=== PATIENT | female | born 1980 | race Caucasian/White ===

== ENCOUNTER 2017-08-23 17:36 | Emergency (ER) | payer BC ==
--- NOTE | 2017-08-23 18:56 | EDM.PDOC ---
ED HPI GENERAL MEDICAL PROBLEM - General Chief Complaint: General Stated Complaint: SOB Time Seen by Provider: 08/23/17 18:35 Source of Information: Reports: Patient History Limitations: Reports: No Limitations - History of Present Illness INITIAL COMMENTS - FREE TEXT/NARRATIVE: c/o rhinorrhea x 2d, myalgias, cough pt with 5d of V, diarrhea, fever to 101 , chills, and body aches 2w ago. Went to clinic and given N pill, took for 3d and was able to eat. now x 2d with URI, [place], ST, cough, ear pressure. Saw manager of community relations 2y ago and given Flonase, HFA x 2, however not used those in 1y. Apparently no definite dx. Pt denies asthma and hayfever. Did see Dr Suarez, manager infrastructure and asthma physician, as well. has 2 children, one with ST and cough. Husbnad not ill. 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 Went to walk-in clinic, had mask on and breathed in 20x and felt sob and panicky and sent here. VSS here. 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 OB/BYN History: - Infectious Disease History Infectious Disease History: Reports: Chicken Pox, Shingles - Past Surgical History Head Surgeries/Procedures: Reports: None HEENT Surgical History: Reports: Oral Surgery GI Surgical History: Reports: Appendectomy Female Surgical History: Reports: Hysterectomy, Salpingo-Oophorectomy Social & Family History - Family History Family Medical History: Noncontributory - Tobacco Use Smoking Status *Q: Former Smoker Used Tobacco, but Quit: Yes Month/Year Tobacco Last Used: may - Caffeine Use Caffeine Use: Reports: Soda - Alcohol Use Days Per Week of Alcohol Use: 0 - Recreational Drug Use Recreational Drug Use: No - Living Situation & Occupation Living situation: Reports: Occupation: Employed ED ROS GENERAL - Review of Systems Review Of Systems: See Below Constitutional: Reports: Fever HEENT: Reports: Rhinitis Respiratory: Reports: Cough. Denies: Sputum Cardiovascular: Reports: No Symptoms Endocrine: Reports: No Symptoms GI/Abdominal: Reports: No Symptoms : Reports: No Symptoms Musculoskeletal: Reports: No Symptoms Skin: Reports: No Symptoms Neurological: Reports: No Symptoms Psychiatric: Reports: No Symptoms Hematologic/Lymphatic: Reports: No Symptoms Immunologic: Reports: No Symptoms ED EXAM, GENERAL - Physical Exam Exam: See Below Exam Limited By: No Limitations General Appearance: Alert, WD/WN, No Apparent Distress Eye Exam: Bilateral Eye: Normal Inspection Ears: Normal External Exam, Normal Canal, Hearing Grossly Normal, Normal TMs Nose: No Blood, Other (30% swell b/l, clear mucus) Throat/Mouth: Normal Inspection, Normal Lips, Normal Teeth, Normal Gums, Normal Oropharynx, Normal Voice, No Airway Compromise Head: Atraumatic, Normocephalic Neck: Normal Inspection, Supple, Non-Tender, Full Range of Motion Respiratory/Chest: No Respiratory Distress, Lungs Clear, Normal Breath Sounds, No Accessory Muscle Use, Chest Non-Tender Cardiovascular: Regular Rate, Rhythm, No Edema, No JVD, No Murmur GI/Abdominal: Soft, Non-Tender, No Distention Back Exam: Normal Inspection Extremities: Normal Inspection, Normal Range of Motion, Non-Tender, No Pedal Edema Neurological: Alert, Oriented, CN II-XII Intact, Normal Cognition, No Motor/ Sensory Deficits Psychiatric: Normal Affect, Normal Mood Skin Exam: Warm, Dry, Intact, Normal Color, No Rash Course - Vital Signs Last Recorded V/S: Last Vital Signs Temp 37.2 C 08/23/17 19:19 Pulse 88 08/23/17 17:36 Resp 12 08/23/17 19:19 BP 108/69 08/23/17 19:19 Pulse Ox 98 08/23/17 19:19 - Orders/Labs/Meds Orders: Active Orders 24 hr Category Date Time Status Chest 2V [CR] Stat Exams 08/23/17 18:20 Ordered CULTURE STREP A CONFIRMATION [RM] Stat Lab 08/23/17 18:00 Results INFLUENZA A+B AG SCREEN [] Stat Lab 08/23/17 18:24 Ordered STREP SCRN A RAPID W CULT CONF [] Stat Lab 08/23/17 18:24 Ordered Labs: Laboratory Tests 08/23/17 08/23/17 08/23/17 Range/Units 19:01 19:01 19:01 WBC 4.3 L (4.5-12.0) X10-3/uL RBC 5.15 (3.23-5.20) x10(6)uL Hgb 15.1 (11.5-15.5) g/dL Hct 44.8 (30.0-51.3) % MCV 86.9 (80-96) fL MCH 29.2 (27.7-33.6) pg MCHC 33.6 (32.2-35.4) g/dL RDW 12.2 (11.5-15.5) % Plt Count 213 (125-369) X10(3)uL MPV 7.8 (7.4-10.4) fL Neut % (Auto) 55.3 (46-82) % Lymph % (Auto) 28.9 (13-37) % [place] % (Auto) 14.3 H (4-12) % Eos % (Auto) 1 (1.0-5.0) % Baso % (Auto) 1 (0-2) % Neut # (Auto) 2.4 (1.6-8.3) # Lymph # (Auto) 1.3 (0.6-5.0) # [place] # (Auto) 0.6 (0.0-1.3) # Eos # (Auto) 0.0 (0.0-0.8) # Baso # (Auto) 0.0 (0.0-0.2) # Sodium 140 (135-145) mmol/L Potassium 3.3 L (3.5-5.3) mmol/L Chloride 102 (100-110) mmol/L Carbon Dioxide 32 (21-32) mmol/L BUN 7 (7-18) mg/dL Creatinine 0.8 (0.55-1.02) mg/dL Est Cr Clr Drug Dosing 81.53 mL/min Estimated GFR (MDRD) > 60 (>60) BUN/Creatinine Ratio 8.8 L (9-20) Glucose 95 (80-116) mg/dL Calcium 9.1 (8.6-10.2) mg/dL Total Bilirubin 0.4 (0.1-1.3) mg/dL AST 19 (5-25) IU/L ALT 35 (12-36) U/L Alkaline Phosphatase 93 (56-112) IU/L C-Reactive Protein 0.4 L (0.5-0.9) mg/dL Total Protein 7.6 (6.0-8.0) g/dL Albumin 3.9 (3.5-5.2) g/dL Globulin 3.7 g/dL Albumin/Globulin Ratio 1.1 - Re-Assessments/Exams Free Text/Narrative Re-Assessment/Exam: 08/23/17 19:35 CxR and labs are neg except for K 3.3 and inc'd monos flu neg, strep neg Departure - Departure Time of Disposition: 19:35 Disposition: Home, Self-Care 01 Condition: Good Clinical Impression: Viral syndrome, Flu-like symptoms - Discharge Information Prescriptions: Potassium Chloride 20 meq PO BID #6 tablet.er Instructions: Viral Illness, Adult Referrals: Jared Sal MD [Primary Care Provider] - Forms: ED Department Discharge Additional Instructions: For pain and inflammation, take acetaminophen 500 mg 2 tabs 4 times a day for 2 days, longer if needed. To replace potassium, take potassium 20 meq 1 tab 2 times a day for 3 days. Use good handwashing. Get good adequate rest. See your doctor if you feel worse or are not better in 5 days. - My Orders Last 24 Hours: My Active Orders 08/23/17 18:00 CULTURE STREP A CONFIRMATION [RM] Stat 08/23/17 18:20 Chest 2V [CR] Stat 08/23/17 18:24 INFLUENZA A+B AG SCREEN [RM] Stat STREP SCRN A RAPID W CULT CONF [] Stat - Assessment/Plan Last 24 Hours: My Active Orders 08/23/17 18:00 CULTURE STREP A CONFIRMATION [RM] Stat 08/23/17 18:20 Chest 2V [CR] Stat 08/23/17 18:24 INFLUENZA A+B AG SCREEN [] Stat STREP SCRN A RAPID W CULT CONF [] Stat
--- NOTE | 2017-08-26 13:21 | CR ---
INDICATION: Cough, history of pneumonia. CHEST: PA and lateral views of the chest 08/23/2017, were compared with 2009 and 01/05/2010, revealing the heart, mediastinum, and bony thorax to be unremarkable, except to note pectus excavatum deformity of moderate degree. An active infiltrate or effusion was not identified. Slightly increased flattening of a diaphragm leaf on the lateral view raises question of a mild degree of obstructive airway disease - correlate clinically. IMPRESSION: 1. No acute process. 2. Question the possibility of a mild degree of obstructive airway disease. MTDD
== END 2017-08-23 19:48 | disposition home or self-care (01) ==
LOC: FB.ED 17:36
DX: B34.9 Viral infection, unspecified (principal); Z88.6 Allergy status to analgesic agent; Z87.891 Personal history of nicotine dependence
CPT/HCPCS: 36415; 71046; 80053; 85025; 86140; 87081; 87804; 87804-59; 87880-QW; 99285

== ENCOUNTER 2023-04-11 21:03 | Emergency (ER) | payer BC, OTHER ==
[2023-04-11] MEDS ORDERED: Cyclobenzaprine 10 MG Tab PO ONE (21:04)
[2023-04-11] MEDS ORDERED: Acetaminophen/HYDROcodone 325-5 MG Tab PO ONE (21:04)
[2023-04-11] MEDS: HYDROmorphone 2 MG/ML SDV IM ONE (21:40)
[2023-04-11] MEDS: hydrOXYzine HCl 50 MG/ML SDV IM ONE (21:41)
== END 2023-04-11 22:03 | disposition home or self-care (01) ==
LOC: FB.ED 21:03
DX: M62.830 Muscle spasm of back (principal); E78.00 Pure hypercholesterolemia, unspecified; Z79.899 Other long term (current) drug therapy; Z88.8 Allergy status to other drugs, medicaments and biological substances
CPT/HCPCS: 96372; 99284; A9270-GY; J1170; J3410